=== PATIENT | female | born 1990 | race Caucasian/White ===

== ENCOUNTER 2017-02-04 22:22 | Emergency (ER) | payer MEDICAID ==
[~2017-02-04] VITALS: Ht 157.5 cm; Wt 67.5 kg
[2017-02-04 22:31] VITALS: BP 120/71
== END 2017-02-04 23:46 | disposition home or self-care (01) ==
LOC: ED 23:35
DX: L04.0 Acute lymphadenitis of face, head and neck (principal); Z87.891 Personal history of nicotine dependence
CPT/HCPCS: 99281

== ENCOUNTER 2018-02-21 19:26 | Emergency (ER) | payer MEDICAID ==
[~2018-02-21] VITALS: Ht 157.5 cm; Wt 66.7 kg
[2018-02-21 19:28] VITALS: BP 96/58
== END 2018-02-21 20:52 | disposition home or self-care (01) ==
LOC: ED 20:46
DX: S86.111A Strain of other muscle(s) and tendon(s) of posterior muscle group at lower leg level, right leg, initial encounter (principal); S76.111A Strain of right quadriceps muscle, fascia and tendon, initial encounter; X58.XXXA Exposure to other specified factors, initial encounter; Y93.89 Activity, other specified; Y92.89 Other specified places as the place of occurrence of the external cause; Y99.8 Other external cause status
CPT/HCPCS: 36415; 80047; 99285

== ENCOUNTER 2018-03-17 18:30 | Emergency (ER) | payer MEDICAID ==
[~2018-03-17] VITALS: Ht 157.5 cm; Wt 64.9 kg
[2018-03-17 19:49] LABS: MICROSCOPIC INDICATED
[2018-03-17 19:51] LABS: CULTURE INDICATED? NO; HCG UR SG 1.022 (1.003-1.030)
[2018-03-17 19:58] LABS: ALBUMIN 4.1 g/dL (3.4-5.0); ANION GAP 10 mmol/L (5-15); CALCIUM 9.2 mg/dL (8.5-10.1); CHLORIDE 107 mmol/L (98-107)
[2018-03-17 20:02] LABS: ALANINE AMINOTRANSFERASE 32 U/L (12-78); ALKALINE PHOSPHATASE 98 U/L (45-117); BILIRUBIN,TOTAL 0.5 mg/dL (0.2-1.0); CREATININE 0.92 mg/dL (0.55-1.02); TOTAL PROTEIN 8.1 g/dL (6.4-8.2)
[2018-03-17 20:34] LABS: BASOPHILS # (AUTO) 0.03 x10^3/uL (0-0.1); BASOPHILS % (AUTO) 1 % (0-1); EOSINOPHILS # (AUTO) 0.07 x10^3/uL (0-0.4); EOSINOPHILS % (AUTO) 1 % (1-7); LYMPHOCYTES # (AUTO) 2.08 x10^3/uL (1-3.4); LYMPHOCYTES % (AUTO) 33 % (22-44); MD NO; MEAN CORPUSCULAR HEMOGLOBIN 29.2 pg (27.0-34.8); MEAN CORPUSCULAR HGB CONC 33.8 g/dL (32.4-35.8); MEAN CORPUSCULAR VOLUME 86.5 fL (80-100); MEAN PLATELET VOLUME 9.3 fL (7.4-10.4); MONOCYTES # (AUTO) 0.35 x10^3/uL (0.2-0.8); MONOCYTES % (AUTO) 6 % (2-9); NEUTROPHILS # (AUTO) 3.71 x10^3/uL (1.8-6.8); NEUTROPHILS % (AUTO) 60 % (42-75); PLATELET COUNT 264 x10^3/uL (130-400); RED BLOOD COUNT 4.91 x10^6/uL (3.82-5.3); RED CELL DISTRIBUTION WIDTH 13.7 % (9.6-15.2)
[2018-03-17 21:27] VITALS: BP 112/74
== END 2018-03-17 21:29 | disposition home or self-care (01) ==
LOC: ED 20:10
DX: K29.00 Acute gastritis without bleeding (principal); K25.3 Acute gastric ulcer without hemorrhage or perforation
CPT/HCPCS: 36415; 76700; 80053; 81001; 81025; 83690; 85025; 86677; 99285

== ENCOUNTER 2018-09-23 18:00 | Emergency (ER) | payer MEDICAID ==
[~2018-09-23] VITALS: Ht 157.5 cm; Wt 62.0 kg
--- NOTE | 2018-09-23 18:19 | NUR ---
PT STATED HAVING CHEST DISCOMFORT AND SOB WITH EXERTION. EKG DONE IN TRIAGE.
[2018-09-23 19:00] LABS: MICROSCOPIC INDICATED
[2018-09-23] MEDS ORDERED: PROMETHAZINE 25 MG/ML, 1ML IM ONE (19:00)
[2018-09-23] MEDS ORDERED: PROMETHAZINE 25 MG/ML, 1ML ONE (19:03)
[2018-09-23 19:04] LABS: BASOPHILS # (AUTO) 0.08 x10^3/uL (0-0.1); BASOPHILS % (AUTO) 1 % (0-1); EOSINOPHILS # (AUTO) 0.09 x10^3/uL (0-0.4); EOSINOPHILS % (AUTO) 1 % (1-7); LYMPHOCYTES # (AUTO) 1.87 x10^3/uL (1-3.4); LYMPHOCYTES % (AUTO) 28 % (22-44); MD NO; MEAN CORPUSCULAR HEMOGLOBIN 29.4 pg (27.0-34.8); MEAN CORPUSCULAR HGB CONC 33.1 g/dL (32.4-35.8); MEAN CORPUSCULAR VOLUME 88.8 fL (80-100); MEAN PLATELET VOLUME 10.2 fL (7.4-10.4); MONOCYTES # (AUTO) 0.43 x10^3/uL (0.2-0.8); MONOCYTES % (AUTO) 7 % (2-9); NEUTROPHILS # (AUTO) 4.13 x10^3/uL (1.8-6.8); NEUTROPHILS % (AUTO) 63 % (42-75); PLATELET COUNT 238 x10^3/uL (130-400); RED BLOOD COUNT 4.91 x10^6/uL (3.82-5.3); RED CELL DISTRIBUTION WIDTH 14.1 % (9.6-15.2)
[2018-09-23 19:08] LABS: CULTURE INDICATED? NO
[2018-09-23 19:16] LABS: ALANINE AMINOTRANSFERASE 32 U/L (12-78); ALBUMIN 4.2 g/dL (3.4-5.0); ANION GAP 9 mmol/L (5-15); CALCIUM 8.8 mg/dL (8.5-10.1); CHLORIDE 107 mmol/L (98-107); CREATININE 0.92 mg/dL (0.55-1.02)
[2018-09-23 19:21] LABS: ALKALINE PHOSPHATASE 84 U/L (45-117); BILIRUBIN,TOTAL 0.5 mg/dL (0.2-1.0); TOTAL PROTEIN 7.6 g/dL (6.4-8.2)
[2018-09-23 20:32] VITALS: BP 109/79
== END 2018-09-23 20:33 | disposition home or self-care (01) ==
LOC: ED 18:42
DX: G43.A1 Cyclical vomiting, in migraine, intractable (principal); R10.30 Lower abdominal pain, unspecified
CPT/HCPCS: 36415; 80053; 81001; 83690; 84703; 85025; 93005; 96372; 99284; J2550

== ENCOUNTER 2018-10-01 06:31 | Emergency (ER) | payer MEDICAID ==
[~2018-10-01] VITALS: Ht 157.5 cm; Wt 61.6 kg
[2018-10-01 06:33] VITALS: BP 108/75
[2018-10-01] MEDS ORDERED: ONDANSETRON ODT 4 MG PO ONE (07:00)
[2018-10-01] MEDS ORDERED: KETOROLAC 30 MG/1 ML IM ONE (07:00)
--- NOTE | 2018-10-01 07:00 | NUR ---
Went to patient room to meet pt. Stevens not in room at this time.
[2018-10-01] MEDS ORDERED: ONDANSETRON ODT 4 MG ONE (07:12)
[2018-10-01] MEDS ORDERED: KETOROLAC 30 MG/1 ML ONE (07:13)
--- NOTE | 2018-10-01 07:22 | NUR ---
Late note entry for 07: Pt returned to room from imaging. Pt pacing in room. Pt's child at bedside watching T.V. Went to pt room to offer medication for pain and nausea per EMAR. Pt yelled at ED RN stating, "Read my fucking chart you fucking bitch, it doesn't help. I need narcotics. They won't give me narcotics until my dad gets here to watch my child. I am a single mom. My dad drives like a fucking moron." ED RN attempted to verbally de-escalate situation with pt, offering pt assistance and asking pt what "works for you." Pt continued verbal abuse and yelling at EDRN. Pt's room door closed to respect other ED pt's. Pt yelled with door closed calling EDRN a, "fucking bitch" and a "cunt". ED MD and ED PA aware. ED PA attempted to verbally de-escalate situation with pt. Pt continued to verbally escalate. Pt asked to not verbally abuse ED staff. Pt walked out of ED room with steady gait and balance when security arrived to room. Pt left with child and left with all personal belongings.
== END 2018-10-01 07:31 | disposition left against medical advice (07) ==
LOC: ED 07:14
DX: N80.9 Endometriosis, unspecified (principal); R10.32 Left lower quadrant pain; Z72.89 Other problems related to lifestyle; F17.210 Nicotine dependence, cigarettes, uncomplicated
CPT/HCPCS: 76830; 99284